=== PATIENT | female | born 1985 | race Caucasian/White ===

== ENCOUNTER 2018-11-14 14:09 | Emergency (ER) | payer OTHER ==
[~2018-11-14] VITALS: Ht 162.6 cm; Wt 107.2 kg
[2018-11-14 14:11] VITALS: Ht 162.6 cm; Wt 107.2 kg
[2018-11-14] MEDS ORDERED: ACETAMINOPHEN 500 MG TAB PO STA (15:14)
[2018-11-14] MEDS ORDERED: TRAM50TA2 PO (15:17)
[2018-11-14] MEDS ORDERED: PROM6.2515 PO (15:17)
[2018-11-14] MEDS ORDERED: IBUP800T48 PO (15:17)
[2018-11-14] MEDS ORDERED: GABA600T PO (15:17)
[2018-11-14] MEDS ORDERED: BENZ-6 PO (15:17)
[2018-11-14] MEDS ORDERED: ACET500C5 PO (15:17)
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
[2018-11-14] MEDS ORDERED: IBUPROFEN 800 MG TAB PO ONE (15:30)
[2018-11-14 16:07] VITALS: BP 143/67; PULSE 88; RESP 20
== END 2018-11-14 16:08 | disposition home or self-care (01) ==
LOC: FTE 14:09
DX: R50.9 Fever, unspecified (principal); M54.9 Dorsalgia, unspecified
CPT/HCPCS: Z7502; Z7610; 99283